=== PATIENT | male | born 1990 | race African-American/Black ===

== ENCOUNTER 2021-05-31 17:08 | Emergency (ER) | payer SELFPAY ==
[2021-05-31] MEDS ORDERED: Bicillin LA 1.2 MILLION UNITS/2 ML SYRINGE ONE (17:46)
[2021-05-31] MEDS ORDERED: methylPREDNISolone Sod Succ/PF 125 MG/2 ML VIAL ONE (17:46)
== END 2021-05-31 18:11 | disposition home or self-care (01) ==
LOC: NAV ERS 17:08
DX: J02.9 Acute pharyngitis, unspecified (principal); Z87.19 Personal history of other diseases of the digestive system; Z79.899 Other long term (current) drug therapy
CPT/HCPCS: 96372; 99283; J0561; J2930